=== PATIENT | female | born 1990 | race Caucasian/White ===

== ENCOUNTER 2018-11-01 10:49 | Emergency (ER) | payer OTHER ==
[~2018-11-01] VITALS: Ht 167.6 cm; Wt 108.9 kg
[~2018-11-01 10:49] MED LIST: ADVIL LIQUI-GE200 MG PO; CYCLOBENZAPRINE10 MG PO; FOLIC ACID1 MG PO; IBUPROFEN800 MG PO; KEPPRA500 MG PO; NORCO 5-325 TA1 EACH PO; OMEPRAZOLE40 MG PO; PERCOCET 7.5-31 EACH PO; PRENATAL CAPLE1 EACH PO; SUMATRIPTAN SUC25 MG PO; TYLENOL325 MG PO; VIMOVO 500-201 EACH PO; VITAMIN D5000 UNIT PO
== END 2018-11-01 12:21 | disposition home or self-care (01) ==
LOC: ED 10:49
DX: T63.441A Toxic effect of venom of bees, accidental (unintentional), initial encounter (principal); Z88.2 Allergy status to sulfonamides; Z88.8 Allergy status to other drugs, medicaments and biological substances; Z79.899 Other long term (current) drug therapy
CPT/HCPCS: 96374; 96375; 99282-25; J1100